=== PATIENT | male | born 1975 | race Caucasian/White ===

== ENCOUNTER 2018-12-22 10:58 | Emergency (ER) | payer BC ==
[2018-12-22] MEDS ORDERED: FLU Vacc QS2019-20(6MOS+)/PF 60 MCG/0.5 ML SYRINGE IM ONE (11:45)
--- NOTE | 2018-12-22 12:08 | EDM.PDOC ---
ED HPI GENERAL MEDICAL PROBLEM - General Chief Complaint: Chest Pain Stated Complaint: EPISODES OF CHEST PAIN 2 NIGHTS AGO Time Seen by Provider: 12/22/18 11:58 Source of Information: Reports: Patient History Limitations: Reports: No Limitations - History of Present Illness INITIAL COMMENTS - FREE TEXT/NARRATIVE: 43-year-old male presents to the ED at the request of his boss. At well at work 2 days ago he developed diffuse anterior chest pain mostly on the right upper anterior chest and on the left. He works on a drilling rig. He states by time he got home the pain had dissipated therefore lasted probably 2-3 hours. He's had no recurrence of the pain but his boss is reluctant to let him come back to the job site do heavy work until he is cleared medically. He has no known heart condition. He does smoke cigarettes. He denies developing cough or sputum production. He has developed some swelling of his left parotid gland and submandibular gland on the left side of his throat and face over the last 48 hours. ECG done by triage nurse shows sinus rhythm at 74/m there is some suspicion of left atrial hypertrophy. And a diffuse early repolarization pattern with no signs of ischemia. Onset: Sudden Onset Date: 12/20/18 Onset Time: 16:00 Duration: Day(s):, Improving, Other Location: Reports: Chest (Pain has stayed away since the evening of the . She is right-sided chest pain that occurred in the workplace 2 days ago. He works on a drilling rig. No recurrence of chest pain.) Quality: Reports: Other Severity: Moderate (States it was aching pressure discomfort and didn't seem to radiate across his upper chest into both arms.) Improves with: Reports: Other Worsens with: Reports: None (Improved on its own by the time he drove home from work that day.) Context: Reports: Other (Occurred with with exertion well pain pipe back out of the hole.). Denies: Activity, Exercise, Lifting, Sick Contact, Trauma Associated Symptoms: Reports: Other (Subsequent his develop pain in his left and similar to gland and in the distribution of his left parotid gland.). 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 ) - Related Data Allergies Allergy/AdvReac Type Severity Reaction Status Date / Time No Known Allergies Allergy Verified 12/22/18 11:15 Home Meds: Home Meds Cephalexin [Keflex] 500 mg PO TID #24 capsule 12/22/18 [Rx] Divalproex Sodium [Depakote] 1,500 mg PO DAILY 12/22/18 [History] Methylphenidate HCl [Methylphenidate ER] 72 mg PO DAILY 12/22/18 [History] Past Medical History Psychiatric History: Reports: Bipolar Social & Family History - Tobacco Use Smoking Status *Q: Current Every Day Smoker Years of Tobacco use: 1 Packs/Tins Daily: 0.6 - Recreational Drug Use Recreational Drug Use: No - Living Situation & Occupation Living situation: Reports: Single Occupation: Employed ED ROS GENERAL - Review of Systems Review Of Systems: See Below Constitutional: Denies: Fever, Chills, Malaise, Weakness, Fatigue, Decreased Appetite, Weight Loss HEENT: Reports: Other Respiratory: Reports: No Symptoms (Pain under the left mandible and along the anterior aspect of his mandible the left side. This started yesterday.), Other. Denies: Shortness of Breath, Wheezing, Pleuritic Chest Pain, Cough Cardiovascular: Reports: Chest Pain (Developed right-sided chest pain 2 days ago while in the workplace med has never reoccurred. NG and chest pain 2 days ago. Occurred while at work). Denies: Blood Pressure Problem, Claudication, Dyspnea on Exertion, Edema, Lightheadedness, Orthopnea Endocrine: Reports: No Symptoms GI/Abdominal: Reports: No Symptoms : Reports: No Symptoms Musculoskeletal: Reports: No Symptoms Skin: Reports: No Symptoms Neurological: Reports: Numbness (Recurrent numbness and tingling in both hands radiating up his arms and shoulders compatible with bilateral carpal tunnel syndrome. Symptoms are worse at night and he appreciates them when driving has to alternate hands quite frequently.), Paresthesia (Bilateral median nerve compression), Tingling Psychiatric: Reports: No Symptoms Hematologic/Lymphatic: Reports: No Symptoms Immunologic: Reports: No Symptoms ED EXAM, GENERAL - Physical Exam Exam: See Below Exam Limited By: No Limitations General Appearance: Alert, WD/WN, No Apparent Distress, Other (Vital signs show temperature 36.2 pulse of 75 respiratory 16 BP 130/85 sats are 96% on room air.) Eye Exam: Bilateral Eye: Normal Inspection (No scleral icterus of blood flow pallor.) Nose: Normal Inspection Throat/Mouth: Other (He has no obvious inflammation the floor of his mouth. There is no stone in the opening of Stensen's duct.) Head: Facial Swelling (Does have some spatial swelling images vision of his left parotid gland both anteriorly and in the deep plan particular the angle of mandible. Also got significant tenderness on palpation of the left submandibular gland.) Neck: Normal Inspection, Supple, Lymphadenopathy (L). No: Non-Tender, Full Range of Motion (Moderate), Carotid Bruit, Limited Range of Motion, Lymphadenopathy (R) Respiratory/Chest: No Respiratory Distress, Lungs Clear, Normal Breath Sounds, No Accessory Muscle Use, Other (Does have some diffuse right-sided chest wall tenderness particularly ribs 4 midclavicular line and laterally. Nothing else on during the remainder of his chest wall. Lungs are clear) Cardiovascular: Normal Peripheral Pulses, Regular Rate, Rhythm, No Edema, No Gallop, No Murmur, No Rub Peripheral Pulses: 3+: Posterior Tibial (L), Posterior Tibial (R), Dorsalis Pedis (L), Dorsalis Pedis (R) GI/Abdominal: Normal Bowel Sounds, Soft, Non-Tender, No Organomegaly, No Abnormal Bruit, No Mass, Pelvis Stable Back Exam: Normal Inspection, Full Range of Motion, Other. No: CVA Tenderness ( L), CVA Tenderness (R) Extremities: Normal Inspection (There is no obvious rib head subluxations on examination of his back.), Normal Range of Motion, Non-Tender Neurological: Alert, Oriented, CN II-XII Intact, Normal Cognition, Normal Gait Psychiatric: Normal Affect, Normal Mood Skin Exam: Warm, Dry, Intact, Normal Color, No Rash EKG INTERPRETATION EKG Date: 12/22/18 Time: 11:28 Rhythm: NSR Rate (Beats/Min): 74 [place]: Normal P-Wave: Enlarged (Consider left atrial hypertrophy.) QRS: Other ST-T: Other (Diffuse early repolarization pattern with no definite ischemia.) QT: Normal EKG Interpretation Comments: Normal ECG Course - Vital Signs Last Recorded V/S: Last Vital Signs Temp 36.2 C 12/22/18 11:13 Pulse 75 12/22/18 11:13 Resp 16 12/22/18 11:13 BP 130/85 12/22/18 11:13 Pulse Ox 96 12/22/18 11:13 - Orders/Labs/Meds Orders: Active Orders 24 hr Category Date Time Status EKG Documentation Completion [RC] ASDIRECTED Care 12/22/18 11:20 Active Influenza Vaccine Charge [RC] .DISCHARGE Care 12/22/18 11:19 Active EKG 12 Lead [EK] Stat Ther 12/22/18 11:19 Ordered Labs: Laboratory Tests 12/22/18 12/22/18 12/22/18 Range/Units 12:20 12:20 12:20 WBC 5.75 (4.23-9.07) K/mm3 RBC 4.87 (4.63-6.08) M/mm3 Hgb 15.3 (13.7-17.5) gm/dl Hct 45.3 (40.1-51.0) % MCV 93.0 H (79.0-92.2) fl MCH 31.4 (25.7-32.2) pg MCHC 33.8 (32.2-35.5) g/dl RDW Std Deviation 43.9 (35.1-43.9) fL Plt Count 279 (163-337) K/mm3 MPV 8.9 L (9.4-12.3) fl Neut % (Auto) 54.0 (34.0-67.9) % Lymph % (Auto) 28.3 (21.8-53.1) % Roosevelt % (Auto) 14.8 H (5.3-12.2) % Eos % (Auto) 1.9 (0.8-7.0) Baso % (Auto) 0.5 (0.1-1.2) % Neut # (Auto) 3.10 (1.78-5.38) K/mm3 Lymph # (Auto) 1.63 (1.32-3.57) K/mm3 Roosevelt # (Auto) 0.85 H (0.30-0.82) K/mm3 Eos # (Auto) 0.11 (0.04-0.54) K/mm3 Baso # (Auto) 0.03 (0.01-0.08) K/mm3 D-Dimer, Quantitative 0.26 (0.19-0.50) mg/L Sodium 142 (136-145) mEq/L Potassium 4.5 (3.5-5.1) mEq/L Chloride 107 (98-107) mEq/L Carbon Dioxide 28 (21-32) mEq/L Anion Gap 11.5 (5-15) BUN 22 H (7-18) mg/dL Creatinine 0.9 (0.7-1.3) mg/dL Est Cr Clr Drug Dosing 108.15 mL/min Estimated GFR (MDRD) > 60 (>60) mL/min BUN/Creatinine Ratio 24.4 H (14-18) Glucose 80 (74-106) mg/dL Calcium 8.3 L (8.5-10.1) mg/dL Magnesium 1.6 L (1.8-2.4) mg/dl Total Bilirubin 0.2 (0.2-1.0) mg/dL AST 10 L (15-37) U/L ALT 23 (16-63) U/L Alkaline Phosphatase 70 (46-116) U/L Troponin I < 0.017 (0.00-0.056) ng/mL C-Reactive Protein < 0.2 (<1.0) mg/dL Total Protein 6.4 (6.4-8.2) g/dl Albumin 3.2 L (3.4-5.0) g/dl Globulin 3.2 gm/dL Albumin/Globulin Ratio 1.0 (1-2) Meds: Medications Discontinued Medications Generic Name Dose Route Start Last Admin Trade Name Freq PRN Reason Stop Dose Admin Influenza Virus Vaccine 1 each 12/22/18 11:19 12/22/18 11:54 Pharmacy To Dose - Influenza Vaccine IM 12/22/18 11:20 Not Given ONETIME ONE Influenza Virus Vaccine 60 mcg 12/22/18 11:45 12/22/18 11:53 Fluzone Quad [id number] Syringe IM 12/22/18 11:46 60 mcg .ONCE ONE Administration - Radiology Interpretation Free Text/Narrative:: 43-year-old male presents the ED at the request of his boss. At work 2 days ago he developed diffuse anterior chest pain more on the right side on the left. It lasted for a good 2 hours or more. He states by the time he got home that evening it had dissipated and he did not seek medical treatment. However his boss is reluctant to allow back into the workplace until he is cleared medically. Aids since is that time his develop some pain and swelling the left nelli-face in the distribution of his left parotid gland and has submandibular adenitis on examination on the left side. He does have some chest wall pain on examination distribution of the fourth rib midclavicular line and laterally. Lungs otherwise sound clear. ECG is normal sinus rhythm at 74 per minute with no signs of ischemia. He does travel long distance at times. Therefore there is a low risk of DVT. Nothing in his lower extremities that would support this. Plan a 1 view chest x-ray to be done routine labs including a d-dimer and a troponin to be done. The cause of the inflammation in his throat CRP CMP and CBC done. - Re-Assessments/Exams Free Text/Narrative Re-Assessment/Exam: 12/22/18 13:59 Labs reveal a normal white count at 5.75. Auto differential shows 54% neutrophils. Hemoglobin is 15.3 with hematocrit of 45.3. MCV is minimally elevated at 93.0. He'll count 279,000. D-dimer is normal at 0.26. Sodium 142 with a potassium of 4.5. Chloride 107 with a bicarbonate 28. And a gap is 11.5. BUN is 22 with a creatinine of 0.9. GFR is greater than 60. Glucose is 80 with a calcium of 8.3. This is slightly low. Magnesium is slightly low at 1.6. Liver function is normal. Troponin I is less than 0.017. C- reactive protein less than 0.2. Total protein 6.4 with saline albumin fraction 3.2. 12/22/18 14:12 discuss the results with the patient. Certainly no evidence of heart related illness. He eats a lot of meat and therefore I'm surprised that his magnesium level is low. He due to alcohol intake. At any rate there is no evidence of heart related illness and I will write a note to that effect that he can return to work per his employer. Departure - Departure Time of Disposition: 14:13 Disposition: Home, Self-Care 01 Reason for Transfer *Q: Other Condition: Good Clinical Impression: Non-cardiac chest pain, Bilateral carpal tunnel syndrome, Submandibular gland infection Prescriptions: Cephalexin [Keflex] 500 mg PO TID #24 capsule Instructions: Carpal Tunnel Syndrome Referrals: PCP,None [Primary Care Provider] - Forms: ED Department Discharge, ED Return to Work/School Form Additional Instructions: Evaluation the emergent today in regards to transient chest pain that occurred in the workplace 2 days ago and then dissipated by the time he got home. There is no evidence that this was heart related on today's examination. Heart markers are normal. There is no blood clots in the lungs in the ECG shows no signs of heart attack. Chest x-ray is also within normal limits. Therefore pain was most likely chest wall in origin as you're very tender along the fourth rib on the right side of your chest which often can be viral in origin. He also have some infection today of her left parotid gland and submandibular gland. Suggest antibiotic cephalexin 500 mg 3 times daily for the next 8 days to clear this up. No other abnormality appreciated on lateral exam was slightly low magnesium level I.6. Thirdly you have bilateral carpal tunnel syndrome as expressed clinically. Suggest follow-up with orthopedic surgeon Dr. Bhardwaj today when you get some time off like around or March when is very cold and you can't work outside would be a good time to have you couple tunnel syndrome repaired surgically. You can make an appointment with his office at any time. He usually is booked out at least 10 days in advance. The number is [phone] to arrange an appointment. You therefore may return to work tomorrow with no restrictions. May use Motrin 6 mg every 6 hours needed for relief of pain in the inflamed submandibular gland left side of your neck and left parotid gland. Fluids and staying away from acidic foods for things like ketchup, mustard, pickle juice, as this will make the pain worse. Sucking on a smooth candies such as a saver or others butterscotch candy does tend to help the gland drain better. - My Orders Last 24 Hours: My Active Orders 12/22/18 11:19 Influenza Vaccine Charge [RC] .DISCHARGE EKG 12 Lead [EK] Stat 12/22/18 11:20 EKG Documentation Completion [RC] ASDIRECTED - Assessment/Plan Last 24 Hours: My Active Orders 12/22/18 11:19 Influenza Vaccine Charge [RC] .DISCHARGE EKG 12 Lead [EK] Stat 12/22/18 11:20 EKG Documentation Completion [RC] ASDIRECTED
--- NOTE | 2018-12-22 14:23 | CR ---
Chest: Portable view of the chest was obtained. Comparison: No previous chest x-ray. Heart size and mediastinum are normal. Lungs are clear. Bony structures are grossly intact. Impression: 1. Nothing acute is seen on portable chest x-ray. Diagnostic code #1
== END 2018-12-22 14:35 | disposition home or self-care (01) ==
LOC: JD.ED 10:58
DX: R07.89 Other chest pain (principal); G56.03 Carpal tunnel syndrome, bilateral upper limbs; K11.8 Other diseases of salivary glands; F17.210 Nicotine dependence, cigarettes, uncomplicated
CPT/HCPCS: 36415; 71045; 71045-26; 80053; 83735; 84484; 85025; 85379; 86140; 90686; 93005; 93010; 99284; 99285-25; G0008